=== PATIENT | male | born 1980 | race Caucasian/White ===

== ENCOUNTER 2016-05-29 11:08 | Emergency (ER) | payer MEDICAID ==
[2016-05-29 11:19] VITALS: BP 135/89; PULSE 97; RESP 16; TEMP 97.3; O2SAT 96
--- NOTE | 2016-05-29 11:42 | UCPHY ---
[id number] [id number] 05/29/16 11:38 HPI/ROS: HPI: 35-year-old male presents to urgent care with chief concern maxillary sinus tenderness that onset significantly over the past 3 days. Symptoms of nasal congestion and intermittently productive cough begin 7-10 days ago. Denies fever, chills, dizziness, shortness of breath, chest pain, nausea or vomiting. No history of asthma or pneumonia. Current daily smoker. Has no primary care provider. ROS:10 point review of systems is negative other than as stated in HPI (Blossom Castillo) Physical Exam: Vital signs stable, reviewed by me General: Awake, alert, calm, cooperative. No acute distress. Head: Atraumatic. EENT: Conjuctiva mildly injected. TMs intact, without redness or bulging. Nasal mucosa is erythematous with moderate purulent discharge. Pharynx mildly erythematous. Uvula midline. No tonsillar abscess or exudates. Significant maxillary tenderness to percussion. Respiratory: Breathing unlabored. Lungs clear to auscultation bilaterally. No accessory muscle use. CV: Heart rate regular. S1-S2 present. No murmur. GI: Abdomen soft, nontender. Bowel sounds positive x4 quadrants. : Deferred Skin: Warm, dry, intact. No rashes present. Capillary refill brisk. Musculoskeletal: Full ROM all extremities. Neuro: Alert oriented x3. Strength equal in all 4 extremities. (Blossom Castillo) Constitutional: Initial Vital Signs Temperature (C) 36.3 C 05/29/16 11:17 Heart Rate 97 05/29/16 11:17 Respiratory Rate 16 05/29/16 11:17 Blood Pressure 135/89 H 05/29/16 11:17 O2 Sat (%) 96 05/29/16 11:17 O2 Delivery Mode Room Air Allergies/Adverse Reactions: No Known Allergies Allergy (Verified 05/29/16 11:16) Home Medications: Medication Instructions Recorded Aspirin EC 81 mg (OTC) 08/10/15 Amoxicillin/Clavulanate Pot 875 mg PO BID #14 tab 05/29/16 [Augmentin 875 MG TAB (*)] Medical Decision Making ED Course/Re-evaluation: Urgent Care BANK COMPLIANCE OFFICER supervision Physician documentation: The patient was evaluated and managed by the nurse practitioner. My co- signature indicates that I have reviewed this chart and I agree with the findings and plan of care as documented. I am the secondary supervising physician. (Arvind Renteria) Differential Diagnosis: Sinusitis, URI, influenza (Blossom Castillo) Departure - Departure Disposition: Home, Routine, Self-Care Clinical Impression: Sinusitis Condition: Good Instructions: Sinusitis (ED) Additional Instructions: Plan: Antibiotic as prescribed Use Flonase (nasal steroid) [id number] 2 puffs in each nostril first thing in the morning while symptoms persist. Drink plenty of fluids Humidifier/steam Saline nasal drops or spray several times per day Mucinex available [id number] every 12 hours as needed for congestion Recheck if increased fever, pain, or congestion. Otherwise, follow up with primary care next week--When you call to schedule appointment, please let the office know you are an "ER follow up" appointment" Referrals: NONE *PRIMARY CARE P,. [Primary Care Provider] - As per Instructions [facility] [Outside] - As per Instructions Stand Alone Forms: Work Excuse Prescriptions: Amoxicillin/Clavulanate Pot [Augmentin 875 MG TAB (*)] 875 mg PO BID #14 tab - PQRS PQRS Measurement: Not applicable (Blossom Castillo)
== END 2016-05-29 11:53 | disposition home or self-care (01) ==
LOC: CED 11:08
DX: J01.90 Acute sinusitis, unspecified (principal)
CPT/HCPCS: 99215-PO; G0463-PO

== ENCOUNTER 2016-06-05 20:43 | Emergency (ER) | payer MEDICAID ==
[2016-06-05] MEDS ORDERED: NS 1,000 ML IV ONE (21:05)
[2016-06-05] MEDS ORDERED: ONDANSETRON 4 MG/2 ML VIAL IVP ONE (21:05)
[2016-06-05 21:10] VITALS: BP 106/75; TEMP 98.4
[2016-06-05] MEDS ORDERED: IPRATROPIUM/ALBUTEROL 3 ML DEYVIAL IH ONE (21:13)
[2016-06-05 22:02] LABS: % IMMATURE GRANULYOCYTES 0.7 % (0.0-1.1); ABSOLUTE IMMATURE GRANULOCYTES 0.05 10^3/uL (0.00-0.10); ADD DIFF? NO; ADD MORPH? NO; ADD SCAN? NO; ATYPICAL LYMPHOCYTE FLAG 30 (0-99); FRAGMENT RBC FLAG 0 (0-99); HEMATOCRIT 46.4 % (40.0-51.0); HEMOGLOBIN 16.7 g/dL (13.7-17.5); LEFT SHIFT FLG 0 (0-99); LIPEMIA HEMOLYSIS FLAG 90 (0-99); MEAN CELL HEMOGLOBIN 34.5 pg (27.9-34.1); MEAN CELL VOLUME 95.9 fL (81.5-99.8); MEAN PLATELET VOLUME 9.1 fL (8.7-11.7); PLATELET CLUMPS FLAG 10 (0-99); PLATELET COUNT 307 10^3/uL (150-400); RED BLOOD CELL COUNT 4.84 10^6/uL (4.40-6.38); RED CELL DISTRIBUTION WIDTH 11.9 % (11.5-15.2)
--- NOTE | 2016-06-05 22:16 | DX ---
PA and lateral chest. June 05, 2016. Clinical History: Cough, fever, rule out pneumonia. Comparison Study: None available. Findings: Mild central bronchial wall thickening suggestive of bronchitis, without confluent pneumoni a identified. Heart size is normal. No pleural effusion.. Visualized osseous structures appear normal. Impression: Central bronchitis..
[2016-06-05] MEDS ORDERED: ONDANSETRON 4MG PREPACK#2 BTL TAKEHOME ONE (22:19)
--- NOTE | 2016-06-05 22:22 | UCPHY ---
H & P Patient Type: Established Chief Complaint Nursing Narrative: pt reports cough, congestion, nausea, vomiting, body aches and chills. pt reports sick for 1 week. worse today Time Seen by Provider: 06/05/16 21:04 HPI/ROS: This patient was diagnosed with sinusitis 1 week ago and just finished Augmentin 875 twice daily but complains of a cough that is frequent and is triggering a gag reflex with vomiting. He has a feeling of chest congestion associated with this. He also reports myalgias and ongoing subjective fevers. Cough frequency intensity worsened today and triggered the vomiting starting at 5:00 p.m. with 3 episodes since. ROS: No recent high fevers or chills though did have higher fever the 1st day or 2 of the illness. HEENT: No ear pain or throat pain. He does have mild headaches that improved with [id number] analgesics. Pulmonary: No respiratory distress or pleuritic pain. Cardiovascular: No chest pain. GI: He denies any abdominal pain. No hemoptysis. No diarrhea. 10 point ROS is otherwise negative. Source: Patient Exam Limitations: No limitations - Personal History Current Tetanus Diphtheria and Acellular Pertussis (TDAP): Yes Tetanus Vaccine Date: < 10 years - Medical/Surgical History Hx Asthma: No Hx Chronic Respiratory Disease: No Hx Diabetes: No Hx Cardiac Disease: No Hx Renal Disease: No Hx Cirrhosis: No Hx Alcoholism: No Hx HIV/AIDS: No Hx Splenectomy or Spleen Trauma: No Other PMH: left eye reconstructive surgery, endoscopy, gastric ulcers, right hip replacement - Family History Significant Family History: No pertinent family hx - Social History Smoking Status: Current every day smoker Alcohol Use: Occasionally - Physical Exam Exam: General Appearance: Alert, no distress. Eyes: Pupils equal and round no pallor or injection. ENT, Mouth: Mucous membranes dry. Respiratory: Dry intermittent cough with faint expiratory wheeze. No rales or rhonchi appreciated. Cardiovascular: Tachycardic with no murmur gallop or rub Gastrointestinal: Abdomen is soft and nontender, no masses, bowel sounds normal. Neurological: Alert oriented with no focal deficits. Skin: Warm and dry, no rashes. Musculoskeletal: Neck is supple nontender. Extremities are symmetrical, full range of motion. Psychiatric: Mood and affect normal DIFFERENTIAL DIAGNOSIS: After history and physical exam differential diagnosis was considered for influenza, viral bronchitis, pneumonia Constitutional: Initial Vital Signs Temperature (C) 36.9 C 06/05/16 21:07 Heart Rate 115 H 06/05/16 21:07 Respiratory Rate 16 06/05/16 21:07 Blood Pressure 106/75 06/05/16 21:07 O2 Sat (%) 94 06/05/16 21:07 O2 Delivery Mode Room Air Allergies/Adverse Reactions: No Known Allergies Allergy (Verified 06/05/16 21:28) Home Medications: Medication Instructions Recorded Aspirin EC 81 mg (OTC) 08/10/15 Albuterol Hfa Anes Only [Proair 2 puffs IH Q4 PRN #1 mdi 06/05/16 Hfa Icu (*)] Ondansetron Odt [Zofran Odt] 4 - 8 mg PO Q4PRN PRN #4 tab 06/05/16 Medical Decision Making - Diagnostics Imaging: Chest x-ray: Read by Radiology and reviewed by myself: Bronchitis with no focal infiltrates or other abnormalities. ED Course/Re-evaluation: IV normal saline bolus, Zofran with resolution of nausea vomiting DuoNeb with decrease cough. Patient felt subjectively improved after treatment. He had resolution of nausea vomiting. I counseled him regarding viral bronchitis. After workup, no evidence of pneumonia. He has a normal CBC. Rapid Influenza test is negative The patient's tachycardia resolved with IV hydration. - Data Points Laboratory Results: Laboratory Results 06/05/16 Unknown Medications Given: Discontinued Medications Albuterol/Ipratropium (Duoneb) 3 ml IH EDNOW ONE Stop: 06/05/16 21:14 Last Admin: 06/05/16 21:27 Dose: 3 ml Sodium Chloride (Ns) 1,000 mls @ 0 mls/hr IV ONCE ONE PRN Reason: Wide Open Stop: 06/05/16 21:06 Last Admin: 06/05/16 21:00 Dose: 1,000 mls Ondansetron HCl (Zofran) 4 mg IVP EDNOW ONE Stop: 06/05/16 21:06 Last Admin: 06/05/16 21:00 Dose: 4 mg Ondansetron HCl (Zofran Odt 4 Mg Prepack#2) 1 btl TAKEHOME EDNOW ONE Stop: 06/05/16 22:20 Last Admin: 06/05/16 22:42 Dose: 1 btl Departure - Departure Disposition: Home, Routine, Self-Care Clinical Impression: Viral bronchitis Vomiting Qualifiers: Vomiting type: unspecified Vomiting Intractability: non-intractable Nausea presence: unspecified Qualifier Code: (R11.10) Vomiting, unspecified Instructions: Acute Bronchitis (ED), Acute Nausea and Vomiting (ED) Additional Instructions: Diagnoses: 1. Viral bronchitis 2. Vomiting Plan: Drink plenty fluids Light diet to feel improved Humidifier Albuterol inhaler with spacer for cough, wheeze or shortness of breath Zofran if needed for nausea or vomiting. you should continue to improve over the next few days. Return for any significant worsening despite the treatment plan Referrals: NONE *PRIMARY CARE P,. [Primary Care Provider] - As per Instructions Stand Alone Forms: Work Excuse Prescriptions: Albuterol Hfa Anes Only [Proair Hfa Icu (*)] 2 puffs IH Q4 PRN #1 mdi PRN Reason: Wheezing Ondansetron Odt [Zofran Odt] 4 - 8 mg PO Q4PRN PRN #4 tab PRN Reason: Vomiting - PQRS PQRS Measurement: NA
[2016-06-05 22:56] VITALS: PULSE 104; RESP 14; O2SAT 92
== END 2016-06-05 22:43 | disposition home or self-care (01) ==
LOC: CED 20:43
DX: J20.8 Acute bronchitis due to other specified organisms (principal); R11.2 Nausea with vomiting, unspecified; Z72.0 Tobacco use
CPT/HCPCS: 71020-PO; 85025-PO; 87400-PO; 96361-PO; 96374-PO; 99214-PO; G0463-PO

== ENCOUNTER 2016-08-15 09:24 | Emergency (ER) | payer MEDICAID ==
[2016-08-15] MEDS ORDERED: PROPARACAINE 0.5% 15 ML OPHT DROP ONE (09:47)
--- NOTE | 2016-08-15 10:02 | UCPHY ---
H & P Time Seen by Provider: 08/15/16 09:38 Patient Type: Established HPI/ROS: CHIEF COMPLAINT: Chemical exposure to eyes HPI: The patient is a 35-year-old male with no significant past medical history. Yesterday, while at work, he accidentally got liquid into both eyes containing automatic transmission fluid and "BG dry cleaner presser". He flushed eyes for approximately 15-20 minutes on scene. Today complains of diffuse burning pain in eyes and eyelids on both sides. No significant change in vision. No fever. No other dermal exposure. REVIEW OF SYSTEMS: Aside from elements discussed in the HPI, a comprehensive 10-point review of systems was reviewed and is negative. PMH: None significant. SOCIAL HISTORY: Denies alcohol or drug abuse. FAMILY HISTORY: Reviewed, noncontributory PHYSICAL EXAM: General:Patient is alert, in no acute distress. Eyes: No visible erythema or swelling to periorbital space or eyelids. No subconjunctival erythema, injection or hemorrhage. PERRL. On slit lamp exam: clear anterior chamber with reactive pupils. No hyphema. No fluoroscein uptake. Visual acuity 20/40. Neuro: Oriented x3. Normal motor function. Normal sensory function. Smoking Status: Current every day smoker Constitutional: Initial Vital Signs Temperature (C) 36.6 C 08/15/16 10:08 Heart Rate 78 08/15/16 10:08 Respiratory Rate 18 08/15/16 10:08 Blood Pressure 122/62 H 08/15/16 10:08 O2 Sat (%) 97 08/15/16 10:08 O2 Delivery Mode Room Air Allergies/Adverse Reactions: No Known Allergies Allergy (Verified 06/05/16 21:28) Home Medications: Medication Instructions Recorded Gentamicin 0.3% [Gentak 0.3% Opht 1 drop OP Q4H 7 Days 08/15/16 Drops (RX)] MDM/Departure - MDM Medications Given: Discontinued Medications Proparacaine HCl (Alcaine 0.5%) 1 drops LEFTEYE ONCE ONE Stop: 08/15/16 10:24 Last Admin: 08/15/16 10:24 Dose: 2 drop ED Course/Re-evaluation: I reviewed the MSDS for both chemicals. ATF is primarily petroleum products/ hydrocarbons and should not pose significant toxicity risk. BG dry cleaner presser for ATF also contains primarily petroleum products with a small amount of mehtyl alcohol and oleic acid. The patient states has essentially normal visual acuity , and is able to type on the small keyboard on his phone so I do not see evidence of significant visual impairment. The patient is 24 hours out from exposure and current pH is normal. It appears the patient is actually here for formal work comp follow-up, which I explained we cannot do. We will instruct him to go directly to the Work Comp clinic upstairs today. - Depart Disposition: Home, Routine, Self-Care Clinical Impression: Chemical exposure of eye Condition: Good Instructions: Chemical Eye Garcia (ED) Additional Instructions: Go directly to Workmans Comp clinic. Stand Alone Forms: Work Comp Follow Up Prescriptions: Gentamicin 0.3% [Gentak 0.3% Opht Drops (RX)] 1 drop OP Q4H 7 Days Referrals: NONE *PRIMARY CARE P,. [Primary Care Provider] - As per Instructions Corky Menon MD [Medical Doctor] - As per Instructions - PQRS PQRS Measurement: 134: Depression screening and followup, PRIME MD-PHQ2 (12 years and older) Over the last 2 weeks, how often have you been bothered by any of the following problems? 1. Feeling down, depressed, or hopeless? 2. Little interest or pleasure in doing things? Patient answered no to both 1 and 2 130: Documentation of medications. Reviewed all patient medications, doses, route and frequency. 226: Do you smoke? No. 51: 18 years old and older with diagnosis of COPD, spirometry performance. Spirometry not performed; equipment not available. Patient has no history of COPD 52: 18 years old and older with COPD and symptoms of COPD or FEV1<60% predicted prescribed a B Agonist. Spirometry not performed; equipment not available.
[2016-08-15 10:10] VITALS: BP 122/62; PULSE 78; RESP 18; TEMP 98; O2SAT 97
[2016-08-15] MEDS ORDERED: PROPARACAINE 0.5% 15 ML OPHT DROP LEFTEYE ONE (10:23)
== END 2016-08-15 10:24 | disposition home or self-care (01) ==
LOC: CED 09:24
DX: Z77.098 Contact with and (suspected) exposure to other hazardous, chiefly nonmedicinal, chemicals (principal); Y99.0 Civilian activity done for income or pay; F17.200 Nicotine dependence, unspecified, uncomplicated
CPT/HCPCS: 99214-PO; G0463-PO

== ENCOUNTER 2017-01-15 08:46 | Emergency (ER) | payer MEDICAID ==
[2017-01-15 08:53] VITALS: BP 129/82; PULSE 107; RESP 16; TEMP 99; O2SAT 94
--- NOTE | 2017-01-15 09:18 | EDPHY ---
H & P Time Seen by Provider: 01/15/17 09:02 HPI/ROS: This patient describes a 5 day history of illness consisting of cough occasionally productive of sputum and fevers with chills yesterday at 1:00 a.m.. 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 He reports that a chest x-ray done there was normal and a symptom out with URI treatment. He feels that his cough intensity has continued to escalate over the past 24 hours in terms of frequency and intensity of cough and reports dark green discharge that he is coughing up. He reports mild bronchial discomfort with exertion and slight dyspnea with exertion. This is uncommon for him and he is feeling well. He notes no exacerbating factors for symptoms except for partial relief of subjective fevers with [id number]-[id number]-[id number] antipyretics. He arrived here today by private vehicle for further evaluation. ROS: No high fever since early Friday morning no other constitutional symptoms HEENT: He reports some nasal congestion and sinus pressure pointing to the left forehead. No sore throat. No dysphonia. No ear pain. Pulmonary: No pleuritic pain or respiratory distress. No hemoptysis. Cardiovascular: No heart palpitations or lightheadedness. No leg swelling or pain. GI: No nausea vomiting abdominal pain. Integumentary: No skin rash. 10 point ROS is otherwise negative. Social History: No drug use. Occasional alcohol. Smoking Status: Light smoker Physical Exam: Physical Exam Vital signs are normal. General: No acute distress HEENT: Nose: Clear discharge bilaterally. No sinus tenderness to percussion. Ears: External canals and tympanic membranes are clear with no erythema or abnormal findings bilaterally. Oropharynx: No erythema or exudates. No dysphonia. No drooling or stridor. Eyes: Pupils equal and react to light. Extraocular motions are intact. Neck: Supple with no meningismus. No lymphadenopathy Lungs: Mild rhonchi and faint wheeze. No rales. No respiratory distress. Cardiac: Regular rate and rhythm with no murmur gallop or rub. No calf swelling or tenderness. Skin: No rash or pallor. Neuro: Alert with no focal deficits noted. Initial differential diagnosis: URI with cough, sinusitis, viral URI, acute bronchitis-viral versus bacterial, doubt pneumonia Constitutional: Initial Vital Signs Temperature (C) 37.2 C 01/15/17 08:50 Heart Rate 107 H 01/15/17 08:50 Respiratory Rate 16 01/15/17 08:50 Blood Pressure 129/82 H 01/15/17 08:50 O2 Sat (%) 94 01/15/17 08:50 O2 Delivery Mode Room Air Allergies/Adverse Reactions: No Known Allergies Allergy (Verified 01/15/17 08:50) Home Medications: Medication Instructions Recorded Albuterol Hfa Anes Only [Proair 2 puffs IH Q4 PRN #1 mdi 01/15/17 Hfa Icu (*)] Aspirin 81mg (*) 01/15/17 Azithromycin [Zithromax] 250 mg PO DAILY #6 tab 01/15/17 MDM/Departure - [facility] ED Course/Re-evaluation: Patient appears clinically well but given that he is a smoker as had fevers, rhonchi and escalating symptoms along with slightly diminished O2 sat of 94%, ICU early he warrants antibiotic treatment to cover potential atypical bacteria. I counseled him regarding this. We will treat him with Zithromax and albuterol. Given that he had a normal chest x-ray yesterday I feel a repeat radiograph would be low yield at this point. Patient appears well time of discharge. - Depart Disposition: Home, Routine, Self-Care Clinical Impression: Acute bronchitis Qualifiers: Bronchitis organism: unspecified organism Qualified Code(s): J20.9 - Acute bronchitis, unspecified Condition: Good Instructions: How to Stop Smoking (ED), Acute Bronchitis (ED) Additional Instructions: Diagnosis: Acute bronchitis Plan: Humidifier Guaifenesin Albuterol inhaler for cough, wheeze or shortness of breath Zithromax antibiotic Quit smoking. Return for any significant worsening despite the treatment plan Prescriptions: Albuterol Hfa Anes Only [Proair Hfa Icu (*)] 2 puffs IH Q4 PRN #1 mdi PRN Reason: Wheezing Azithromycin [Zithromax] 250 mg PO DAILY #6 tab Referrals: Lilliam Bsutos DO [Primary Care Provider] - As per Instructions
== END 2017-01-15 09:35 | disposition home or self-care (01) ==
LOC: CED 08:46
DX: J20.9 Acute bronchitis, unspecified (principal); F17.200 Nicotine dependence, unspecified, uncomplicated; Z79.82 Long term (current) use of aspirin

== ENCOUNTER 2017-01-16 06:52 | Emergency (ER) | payer MEDICAID ==
[2017-01-16 07:02] VITALS: BP 129/85; PULSE 88; RESP 16; TEMP 97.9; O2SAT 96
--- NOTE | 2017-01-16 07:08 | EDPHY ---
H & P Stated Complaint: SEEN HERE YESTERDAY; R EAR PAIN INCREASING Time Seen by Provider: 01/16/17 06:57 HPI/ROS: Chief Complaint: Right ear pain, congestion HPI: 36-year-old no presenting complaining of upper respiratory symptoms by nasal congestion, cough. He was seen here yesterday diagnosed with possible bronchitis and started on azithromycin. Patient states he woke up this morning with pain in his right ear and decreased hearing. He has a history of perforated TMs in the past. He states he has been taking the antibiotic and Mucinex. Has not been taking any other medications. ROS: 10 point Review of Systems is negative except as noted in the HPI. Family History: non-contributory Physical Exam: Gen: Awake, Alert, No Distress HEENT: Ears: Right TM is mildly erythematous. There is a non-purulent appearing effusion. Nose: No Clear rhinorrhea Eyes: PERRLA, EOMI Mouth: Moist mucosa Neck: Supple, no JVD Ext: no edema, non-tender Skin: no rash Neuro: CN II-XII intact, Sensation grossly intact, Strength 5/5 in bilateral upper and lower extremities - Personal History Current Tetanus/Diphtheria Vaccine: Yes Tetanus Vaccine Date: < 10 years - Medical/Surgical History Hx Asthma: No Hx Chronic Respiratory Disease: No Hx Diabetes: No Hx Cardiac Disease: No Hx Renal Disease: No Hx Cirrhosis: No Hx Alcoholism: No Hx HIV/AIDS: No Hx Splenectomy or Spleen Trauma: No Other PMH: left eye reconstructive surgery, endoscopy, gastric ulcers, right hip replacement - Social History Smoking Status: Light smoker Constitutional: Initial Vital Signs Temperature (C) 36.6 C 01/16/17 06:55 Heart Rate 88 01/16/17 06:55 Respiratory Rate 16 01/16/17 06:55 Blood Pressure 129/85 H 01/16/17 06:55 O2 Sat (%) 96 01/16/17 06:55 O2 Delivery Mode Room Air Allergies/Adverse Reactions: No Known Allergies Allergy (Verified 01/15/17 08:50) Home Medications: Medication Instructions Recorded Albuterol Hfa Anes Only [Proair 2 puffs IH Q4 PRN #1 mdi 01/15/17 Hfa Icu (*)] Aspirin 81mg (*) 01/15/17 Azithromycin [Zithromax] 250 mg PO DAILY #6 tab 01/15/17 Medical Decision Making ED Course/Re-evaluation: 36-year-old male with viral upper respiratory type symptoms. He is already taking azithromycin. He woke with ear pain this morning. On examination has some mild erythema bulging his right TM. He has significant nasal congestion. Symptoms are consistent with a blocked eustachian tube. I have explained him that nasal decongestants such as phenylephrine or topical Afrin might help in reducing the inflammation and obese eustachian tubes. He is already taking an antibiotic however I believe that this is likely a viral process. I have also recommended ibuprofen as a best pain medicine given its anti-inflammatory process. In the middle of my conversation with him, prior to my completing my discussion the patient became very angry, that I was not going to do anything for him, stood up and walked out of the room. At that point he was unwilling to listen to anything else I said even though I had not completed my conversation with him. I am uncertain as to why he became so angry and agitated. The patient left the department without any further interaction with staff. Departure - Departure Disposition: Against Medical Advice Clinical Impression: Viral URI Condition: Good Instructions: Viral Syndrome (ED) Referrals: Lilliam Bustos, DO [Primary Care Provider] - As per Instructions
== END 2017-01-16 07:03 | disposition left against medical advice (07) ==
LOC: CED 06:52
DX: J06.9 Acute upper respiratory infection, unspecified (principal); F17.200 Nicotine dependence, unspecified, uncomplicated; Z79.82 Long term (current) use of aspirin

== ENCOUNTER 2017-01-20 15:05 | Emergency (ER) | payer MEDICAID ==
[2017-01-20 15:22] VITALS: BP 122/62; PULSE 78; RESP 18; TEMP 98.6; O2SAT 97
[2017-01-20] MEDS ORDERED: MECLIZINE HCL 25 MG TAB PO ONE (15:38)
[2017-01-20] MEDS ORDERED: DEXAMETHASONE 4 MG TAB PO ONE (15:38)
--- NOTE | 2017-01-20 15:41 | EDPHY ---
H & P Time Seen by Provider: 01/20/17 15:26 HPI/ROS: This patient is here for his 3rd emergency department visit for upper respiratory symptoms and ear pain. He also saw his family physician after visits here on 01/15 on a diagnosis him with bronchitis and placed him on Zithromax encouraged him to use his Flonase steroid nasal spray that he already had an to use albuterol inhaler if needed for his cough. He presented the next day on 01/16 seen by mouth around with chief complain of ear pain and his exam revealed mild erythema and non purulent-appearing effusion. When Dr. Lara was describing the findings that that point seem mostly viral the patient became angry and abruptly left prior to Dr. Gaytan fishing is conversation. He then saw his family physician who changed him from Zithromax to doxycycline which she reports compliance with and is now benign antibiotics for 5 days with persistent ear pain the states has worsened a bit right more than left ear and new onset of vertigo-spinning sensation worse with movement. He reports he is still using Flonase steroid nasal spray. He has not been using the inhaler because his cough is improved. He developed additional symptoms of vertigo. ROS: No high fevers or chills. No other constitutional symptoms HEENT: No facial pain. No drainage from his ear. Neuro: No headache. No focal numbness tingling weakness Pulmonary: Cough is nearly resolved. No shortness of breath no pleuritic pain. GI: No nausea vomiting. 7 point ROS is otherwise negative. Smoking Status: Light smoker Physical Exam: Physical Exam Vital signs are normal. General: No acute distress HEENT: Nose: Clear discharge bilaterally. No sinus tenderness to percussion. Ears: Right external canals clear right TM mildly erythematous with non purulent appearing effusion left ear exam: Clear external canal with mild erythema to the TM and non purulent appearing effusion. Oropharynx: No erythema or exudates. No dysphonia. No drooling or stridor. Eyes: Pupils equal and react to light. Extraocular motions are intact. Neck: Supple with no meningismus. No lymphadenopathy Lungs: Clear to auscultation bilaterally with no rales, rhonchi or wheeze. No respiratory distress. Cardiac: Regular rate and rhythm with no murmur gallop or rub Skin: No rash or pallor. Neuro: GCS 15. Cerebellar exam is normal-symmetric rapid hand movements bilaterally. Cranial nerves 2-12 intact. With head movement he develops mild vertiginous symptoms. Constitutional: Initial Vital Signs Temperature (C) 37 C 01/20/17 15:20 Heart Rate 78 01/20/17 15:20 Respiratory Rate 18 01/20/17 15:20 Blood Pressure 122/62 H 01/20/17 15:20 O2 Sat (%) 97 01/20/17 15:20 O2 Delivery Mode Room Air Allergies/Adverse Reactions: No Known Allergies Allergy (Verified 01/15/17 08:50) Home Medications: Medication Instructions Recorded Albuterol Hfa Anes Only [Proair 2 puffs IH Q4 PRN #1 mdi 01/15/17 Hfa Icu (*)] Doxycycline Calcium 01/20/17 MDM/Departure - MDM Medications Given: Discontinued Medications Dexamethasone (Decadron) 12 mg PO EDNOW ONE Stop: 01/20/17 15:39 Last Admin: 01/20/17 15:42 Dose: 12 mg Meclizine HCl (Meclizine Hcl) 25 mg PO EDNOW ONE Stop: 01/20/17 15:39 Last Admin: 01/20/17 15:42 Dose: 25 mg ED Course/Re-evaluation: Discussion: Patient has serous otitis and benign positional vertigo clinically. Find no clinical evidence for central vertigo, CHIPS SCREEN TENDER infection, lower respiratory infection or other complicating factors. Gave him a dose of meclizine here and explained the correlation between serous otitis and vertigo. I encouraged him to continue his current medications & explained that his symptoms should gradually resolve over the next 3-5 days. He is instructed to follow up with ENT if he has any ongoing symptoms - Depart Disposition: Home, Routine, Self-Care Clinical Impression: Serous otitis media Qualifiers: Chronicity: acute Laterality: bilateral Recurrence: not specified as recurrent Qualified Code(s): H65.03 - Acute serous otitis media, bilateral Benign positional vertigo Qualifiers: Laterality: unspecified laterality Qualified Code(s): H81.10 - Benign paroxysmal vertigo, unspecified ear Condition: Good Instructions: Benign Paroxysmal Positional Vertigo (ED), Serous Otitis Media ( ED) Additional Instructions: Diagnoses: 1. Benign positional vertigo 2. Serous otitis bilaterally Plan: Continue current medications Add on guaifenesin [id number] Add on meclizine [id number] for the vertigo if needed 25 mg 2 times a day You received a dose of Decadron here in the emergency department which should help diminish the swelling and resolved the fluid buildup in her ears. Follow up with the ear nose throat physician if he still have ongoing symptoms the persist beyond the next 3-5 days despite the treatment plan. Referrals: Lilliam Bustos DO [Primary Care Provider] - As per Instructions Joe Dunn MD [Medical Doctor] - As per Instructions
== END 2017-01-20 15:46 | disposition home or self-care (01) ==
LOC: CED 15:05
DX: H65.03 Acute serous otitis media, bilateral (principal); H81.10 Benign paroxysmal vertigo, unspecified ear; F17.200 Nicotine dependence, unspecified, uncomplicated

== ENCOUNTER 2017-02-13 21:18 | Emergency (ER) | payer MEDICAID ==
[2017-02-13 21:29] VITALS: RESP 16; TEMP 98.8
[2017-02-13] MEDS ORDERED: KETOROLAC 30 MG/1 ML SDV IVP ONE (21:44)
[2017-02-13] MEDS ORDERED: METOCLOPRAMIDE 10 MG/2 ML VIAL IVP ONE (21:44)
[2017-02-13] MEDS ORDERED: NS 1,000 ML IV ONE (21:44)
--- NOTE | 2017-02-13 21:48 | EDPHY ---
H & P Stated Complaint: BRENNER since last noc that has increased today. Vomited last noc. Denies diarrh Time Seen by Provider: 02/13/17 21:24 HPI/ROS: This patient awakened at 2:00 a.m. with a severe frontal headache throbbing in nature, 8/10 intensity that persists. He had associated vomiting 4 episodes between 2 and 6:00 a.m. that resolved with Zofran that his had for her headaches. However he has persistent nausea since then & ongoing headache. He took 400 mg of ibuprofen after the vomiting resolved this morning without significant improvement. The headache worsens with movement. He notes no other exacerbating factors. He has associated photophobia. He has not had a headache like this before. He states that is the worst headache of his life. He has associated fatigue today and slept much of the day. His brought him in by private vehicle for further evaluation. ROS: Constitutional: Fatigue as above. No high fevers or chills though he reports subjective low-grade fevers. HEENT: No vision changes. No sore throat. He has resolving hearing loss the right ear after recent ear infection and is currently on prednisone-he does not know the dose and he missed today's dose due to the nausea vomiting. He saw ENT for this ailment. No recent head trauma. Neuro: No confusion. No focal numbness tingling weakness. No one else at home currently has a headache. Musculoskeletal: No neck pain or stiffness. No other musculoskeletal complaints. Pulmonary: He has a mild, lingering cough after recent bronchitis that improves with albuterol and has nearly resolved. Cardiovascular: No chest pain. GI: No abdominal pain. Does have loose stools but no zev diarrhea. Integumentary: No skin rash Endocrine: No complaints Complete review of symptoms is otherwise negative. Source: Patient Exam Limitations: No limitations - Personal History Tetanus Vaccine Date: < 10 years - Medical/Surgical History PMH: No history of migraines. Hx Asthma: No Hx Chronic Respiratory Disease: No Hx Diabetes: No Hx Cardiac Disease: No Hx Renal Disease: No Hx Cirrhosis: No Hx Alcoholism: No Hx HIV/AIDS: No Hx Splenectomy or Spleen Trauma: No Other PMH: left eye reconstructive surgery, endoscopy, gastric ulcers, right hip replacement,bronchitis - Family History Significant Family History: No pertinent family hx (No history of migraines in his family, cerebral aneurysms or bleeding strokes.) - Social History Smoking Status: Light smoker Alcohol Use: Occasionally - Physical Exam Exam: Physical exam: Vital signs are normal General: Patient is in no acute distress. HEENT: Is no external evidence of trauma on exam. No tenderness to palpation except minimal mastoid tenderness with no erythema or warmth to touch. Eyes: Pupils are equal and reactive to light. Extraocular motions are intact. Optic fundi: Clear with no papilledema or hemorrhage. Nose atraumatic. Ears: Clear bilaterally with no hemotympanum. Oropharynx: No dental trauma or malocclusion. No intraoral lacerations. Eyes: Pupils are equal and reactive to light. Extraocular motions are intact. Optic fundi: Clear with no papilledema or hemorrhage. Lungs: Clear to auscultation bilaterally Neck: Supple no meningismus. Cardiac: Regular rate and rhythm no murmur gallop or rub. Abdomen: Soft nontender no organomegaly Neuro: GCS of 15. Cranial nerves II through XII intact. Cerebellar exam is normal as judged by symmetric rapid hand movements bilaterally. No pronator drift. No sensory or motor deficits are appreciated. Initial differential diagnosis: Migraine, tension headache, CLAIMS VICE PRESIDENT lesion, intracranial bleed, viral illness, recurrent or persistent sinusitis, mastoiditis Constitutional: Initial Vital Signs Temperature (C) 37.1 C 02/13/17 21:24 Heart Rate 89 02/13/17 21:24 Respiratory Rate 16 02/13/17 21:24 Blood Pressure 107/69 02/13/17 21:24 O2 Sat (%) 93 02/13/17 21:24 O2 Delivery Mode Room Air Allergies/Adverse Reactions: No Known Allergies Allergy (Verified 02/13/17 21:22) Home Medications: Medication Instructions Recorded Albuterol Hfa Anes Only [Proair 2 puffs IH Q4 PRN #1 mdi 01/15/17 Hfa Icu (*)] Ondansetron Odt [Zofran Odt] 4 - 8 mg PO Q4PRN PRN #4 tab 02/13/17 Predisone 02/13/17 Medical Decision Making - Diagnostics Imaging Results: Imaging Impressions Head CT 02/13/17 22:02 Impression: 1. Negative for intracranial abnormality. 2. Right mastoiditis. Results called and discussed with Dr. SHAHRAM LIEBERMAN on 02/13/2017 at 22:48 Imaging: Discussed imaging studies w/ doctor of osteopathy Radiologist ED Course/Re-evaluation: IV normal saline bolus IV Toradol, Reglan, Benadryl 30 minutes after these medications on recheck at 10:45 p.m. the patient's headache is down to 5/10 his nausea is resolved. Decadron 10 [address] IV [address] a CT minute fan-1000 mg p.o. or also administered at 10: 50 p.m.. I reviewed the CT imaging studies. Dr. Page, radiologist commented on some fluid in the right mastoid air cells and mentioned the possibility of mastoiditis. However, clinically the patient did not complain of any pain at this location, has no right ear pain no otitis media currently no fever a normal white blood cell count and clinically does not have mastoiditis. I spoke with Dr. Boston, ear nose throat specialist at the clinic where he was seen-[facility] for right serous otitis with diminished hearing started on prednisone recently and Dr. Boston advises against antibiotics given lack of clinical findings to suggest acute mastoiditis at this time. He will have a close follow up with the ENT group for further evaluation. CT ruled out intracranial bleed, significant mass lesion, sinusitis or any other significant findings. Patient continues to improve clinically. I did discuss this case with Dr. Paul, Night ED MD coming on duty, but don't anticipate any need for further tx. prior to pending d/c home. - Data Points Laboratory Results: Laboratory Results 02/13/17 21:55 02/13/17 21:55 WBC 8.43 10^3/uL 10^3/uL (3.80-9.50) RBC 4.38 10^6/uL L 10^6/uL (4.40-6.38) Hgb 14.8 g/dL g/dL (13.7-17.5) Hct 42.4 % % (40.0-51.0) MCV 96.8 fL fL (81.5-99.8) MCH 33.8 pg pg (27.9-34.1) MCHC 34.9 g/dL g/dL (32.4-36.7) RDW 12.0 % % (11.5-15.2) Plt Count 249 10^3/uL 10^3/uL (150-400) MPV 8.7 fL fL (8.7-11.7) Neut % (Auto) 70.0 % % (39.3-74.2) Lymph % (Auto) 23.8 % % (15.0-45.0) [place] % (Auto) 5.6 % % (4.5-13.0) Eos % (Auto) 0.0 % L % (0.6-7.6) Baso % (Auto) 0.2 % L % (0.3-1.7) Nucleat RBC Rel Count 0.0 % % (0.0-0.2) Absolute Neuts (auto) 5.90 10^3/uL 10^3/uL (1.70-6.50) Absolute Lymphs (auto) 2.01 10^3/uL 10^3/uL (1.00-3.00) Absolute Monos (auto) 0.47 10^3/uL 10^3/uL (0.30-0.80) Absolute Eos (auto) 0.00 10^3/uL L 10^3/uL (0.03-0.40) Absolute Basos (auto) 0.02 10^3/uL 10^3/uL (0.02-0.10) Absolute Nucleated RBC 0.00 10^3/uL 10^3/uL (0-0.01) Immature Gran % 0.4 % % (0.0-1.1) Immature Gran # 0.03 10^3/uL 10^3/uL (0.00-0.10) Medications Given: Discontinued Medications Acetaminophen (Tylenol) 1,000 mg PO EDNOW ONE Stop: 02/13/17 22:39 Last Admin: 02/13/17 22:47 Dose: 1,000 mg Dexamethasone (Decadron Injection) 10 mg IVP EDNOW ONE Stop: 02/13/17 22:48 Last Admin: 02/13/17 22:54 Dose: 10 mg Diphenhydramine HCl (Benadryl Injection) 25 mg IVP EDNOW ONE Stop: 02/13/17 21:45 Last Admin: 02/13/17 22:04 Dose: 25 mg Sodium Chloride (Ns) 1,000 mls @ 0 mls/hr IV ONCE ONE; Wide Open PRN Reason: Protocol Stop: 02/13/17 21:45 Last Admin: 10/05/17 22:03 Dose: 1,000 mls Ketorolac Tromethamine (Toradol) 30 mg IVP EDNOW ONE Stop: 02/13/17 21:45 Last Admin: 02/13/17 22:06 Dose: 30 mg Metoclopramide HCl (Reglan Injection) 10 mg IVP EDNOW ONE Stop: 02/13/17 21:45 Last Admin: 02/13/17 22:08 Dose: 10 mg Ondansetron HCl (Zofran Odt 4 Mg Prepack#2) 1 btl TAKEHOME EDNOW ONE Stop: 02/13/17 23:08 Last Admin: 02/13/17 23:16 Dose: 1 btl Departure - Departure Disposition: Home, Routine, Self-Care Clinical Impression: Acute headache Qualifiers: Headache type: unspecified Intractability: not intractable Qualified Code(s): R51 - Headache Vomiting Qualifiers: Vomiting type: unspecified Vomiting Intractability: non-intractable Nausea presence: with nausea Qualified Code(s): R11.2 - Nausea with vomiting, unspecified Condition: Good Instructions: Ondansetron (By mouth), Acute Headache (ED), Acute Nausea and Vomiting (ED) Additional Instructions: Diagnoses: 1. Acute headache 2. Vomiting Tonight you received Toradol, Reglan, Benadryl, Tylenol and Decadron for your headache. Plan: Home to rest. Zofran if needed for any nausea or vomiting Ibuprofen and Tylenol for any ongoing headache Follow up with the ENT group-Dr. Boston. Call them to arrange for follow-up appointment sometime this week. Consider f/u with Dr. Hayes, Neurology in addition for any ongoing headaches. Return to the emergency department if he have any significant worsening of your headache despite treatment plan. Referrals: Lilliam Bustos DO [Primary Care Provider] - As per Instructions Luis Enrique Hayes DO [Medical Doctor] - As per Instructions Prescriptions: Ondansetron Odt [Zofran Odt] 4 - 8 mg PO Q4PRN PRN #4 tab PRN Reason: Vomiting
[2017-02-13 22:07] LABS: % IMMATURE GRANULYOCYTES 0.4 % (0.0-1.1); ABSOLUTE IMMATURE GRANULOCYTES 0.03 10^3/uL (0.00-0.10); ADD DIFF? NO; ADD MORPH? NO; ADD SCAN? NO; ATYPICAL LYMPHOCYTE FLAG 80 (0-99); FRAGMENT RBC FLAG 0 (0-99); HEMATOCRIT 42.4 % (40.0-51.0); HEMOGLOBIN 14.8 g/dL (13.7-17.5); LEFT SHIFT FLG 0 (0-99); LIPEMIA HEMOLYSIS FLAG 90 (0-99); MEAN CELL HEMOGLOBIN 33.8 pg (27.9-34.1); MEAN CELL HEMOGLOBIN CONCENTR. 34.9 g/dL (32.4-36.7); MEAN CELL VOLUME 96.8 fL (81.5-99.8); MEAN PLATELET VOLUME 8.7 fL (8.7-11.7); PLATELET CLUMPS FLAG 0 (0-99); PLATELET COUNT 249 10^3/uL (150-400); RED BLOOD CELL COUNT 4.38 10^6/uL (4.40-6.38)
[2017-02-13] MEDS ORDERED: ACETAMINOPHEN 500 MG TAB PO ONE (22:38)
[2017-02-13] MEDS ORDERED: DEXAMETHASONE 10 MG/ML VIAL IVP ONE (22:47)
[2017-02-13 22:58] VITALS: BP 109/59; PULSE 86; O2SAT 92
[2017-02-13] MEDS ORDERED: ONDANSETRON 4MG PREPACK#2 BTL TAKEHOME ONE (23:07)
== END 2017-02-13 23:17 | disposition home or self-care (01) ==
LOC: CED 21:18
DX: R51 Headache (principal); R11.2 Nausea with vomiting, unspecified; F17.200 Nicotine dependence, unspecified, uncomplicated
CPT/HCPCS: 70450-PO; 85025-PO; 96374; J1100; J1200; J1885; J2765

== ENCOUNTER 2017-02-25 22:39 | Emergency (ER) | payer MEDICAID ==
[2017-02-25 22:54] VITALS: BP 127/81; PULSE 113; RESP 18; TEMP 97.9; O2SAT 96
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
[2017-02-25] MEDS ORDERED: OXYCODONE/APAP 5/325 TAB PO ONE (23:27)
[2017-02-25] MEDS ORDERED: KETOROLAC 30 MG/1 ML SDV IM ONE (23:39)
[2017-02-25] MEDS ORDERED: KETOROLAC 30 MG/1 ML SDV ONE (23:40)
[2017-02-25] MEDS ORDERED: OXYCODONE/APAP 5/325MG PREPACK#4 BTL TAKEHOME ONE ×2 (23:41)
== END 2017-02-25 23:50 | disposition home or self-care (01) ==
LOC: CED 22:39
DX: M25.551 Pain in right hip (principal); F17.200 Nicotine dependence, unspecified, uncomplicated; Z79.82 Long term (current) use of aspirin
CPT/HCPCS: 73502-PO; J1885